=== PATIENT | male | born 1990 | race Caucasian/White ===

== ENCOUNTER 2016-03-28 09:22 | Inpatient (IN) | payer OTHER ==
[2016-03-28 10:17] VITALS: BMI 21.4
--- NOTE | 2016-03-28 14:08 | HP ---
COWS - Scale Resting Pulse: 1= [place] 81-100 Sweatin=Flushed/Facial Moisture Restless Observation: 3= Extraneous Movement Pupil Size: 2= Moderately Dilated Bone or Joint Aches: 2= Severe Diffuse Aches Runny Nose/ Eye Tearin= Runny Nose/Eyes GI Upset > 30mins: 3= Vomiting/Diarrhea Tremor Observation: 2= Slight Tremor Visible Yawning Observation: 2= >3x During Session Anxiety or Irritability: 2=Irritable/Anxious Goose Flesh Skin: 0=Smooth Skin COWS Score: 21 Admission ROS S - HPI Chief Complaint: I NEED HELP TO STOP USING HEROIN AND CISOC Allergies/Adverse Reactions: Allergies Allergy/AdvReac Type Severity Reaction Status Date / Time No Known Allergies Allergy Verified 03/28/16 10:46 History of Present Illness: THIS 26 YEARS OLD MALE WITH Exam Limitations: No Limitations - Ebola screening Have you traveled outside of the country in the last 21 days: No (N) Have you had contact with anyone from an Ebola affected area: No Have you been sick,other than usual withdrawal symptoms: No Do you have a fever: No - Review of Systems Constitutional: Chills, Diaphoresis, Loss of Appetite, Malaise, Night Sweats, Changes in sleep, Weakness EENT: reports: Tearing, Nose Congestion Respiratory: reports: No Symptoms reported Cardiac: reports: Palpitations GI: reports: Diarrhea, Vomiting, Abdominal cramping : reports: No Symptoms Reported Musculoskeletal: reports: Back Pain, Joint Pain, Muscle Pain, Joint Stiffness Integumentary: reports: Dryness Endocrine: reports: No Symptoms Reported Hematology: reports: No Symptoms Reported Psychiatric: reports: No Sypmtoms Reported Patient History - Patient Medical History Hx Anemia: No Hx Asthma: No Hx Chronic Obstructive Pulmonary Disease (COPD): No Hx Cancer: No Hx Cardiac Disorders: No Hx Congestive Heart Failure: No Hx Hypertension: No Hx Hypercholesterolemia: No Hx Pacemaker: No HX Cerebrovascular Accident: No Hx Seizures: No Hx Diabetes: No Hx Gastrointestinal Disorders: No Hx Liver Disease: No Hx Genitourinary Disorders: No Hx Sexually Transmitted Disorders: No Hx Renal Disease (ESRD): No Hx Thyroid Disease: No Hx Human Immunodeficiency Virus (HIV): No (never tested -refusing testing ) Hx Hepatitis C: No Hx Depression: No (Pt denies) Hx Suicide Attempt: No Hx Bipolar Disorder: No Hx Schizophrenia: No Other Medical History: NO SUIDl,no homicidal - Patient Surgical History Past Surgical History: No - PPD History Previous Implant?: Yes Documented Results: Negative w/o proof Date: 08/16/14 PPD to be Administered?: Yes - Smoking Cessation Smoking history: Current every day smoker Have you smoked in the past 12 months: Yes Aproximately how many cigarettes per day: 20 Cigars Per Day: 0 Hx Chewing Tobacco Use: No Initiated information on smoking cessation: Yes 'Breaking Loose' booklet given: 03/28/16 - Substance & Tx. History Hx Alcohol Use: No Hx Substance Use: Yes Substance Use Type: Heroin, Opiates Hx Substance Use Treatment: Yes (11/[facility]) - Substances Abused Heroin Route: Inhalation Frequency: Daily Amount used: 1 bundle Age of first use: 26 Date of Last Use: 03/26/16 Oxycodone Route: Oral Frequency: Daily Amount used: (5) 30mg pills Age of first use: 19 Date of Last Use: 03/27/16 Family Disease History - Family Disease History Family Disease History: Diabetes: Father (cabg), Heart Disease: Father Admission Physical Exam [facility] - Vital Signs Vital Signs: Vital Signs - 24 hr 03/28/16 10:15 Temperature 97.7 F Pulse Rate 93 H Respiratory 20 Rate Blood Pressure 130/74 - Physical General Appearance: Yes: Moderate Distress, Tremorous, Irritable, Sweating, Anxious HEENTM: Yes: Nasal Congestion, Rhinorrhea Respiratory: Yes: Lungs Clear Neck: Yes: Within Normal Limits Breast: Yes: Within Normal Limits Cardiology: Yes: Regular Rhythm, Regular Rate, S1, S2 Abdominal: Yes: Normal Bowel Sounds, Non Tender, Flat, Soft Genitourinary: Yes: Within Normal Limits Musculoskeletal: Yes: Back pain, Muscle Pain Extremities: Yes: Tremors 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, Fully Oriented, Alert, Motor Strength 5/5 Integumentary: Yes: Dry Lymphatic: Yes: Within Normal Limits - Diagnostic (1) Opioid dependence with withdrawal Current Visit: Yes Status: Acute (2) Nicotine dependence Current Visit: No Status: Chronic Cleared for Admission [facility] - Detox or Rehab [facility] Level of Care: Medically Managed Detox Regimen/Protocol: Methadone [facility] Breath Alcohol Content Breath Alcohol Content: 0 Urine Drug Screen - Results Drug Screen Negative: No Urine Drug Screen Results: ISIDRO-Cocaine, OPI-Opiates, OXY-Oxycodone
[2016-03-28] MEDS ORDERED: ACETAMINOPHEN 325 MG TABLET (FP) PO PRN (14:19)
[2016-03-28] MEDS ORDERED: LOPERAMIDE HCL 2 MG CAPSULE PO PRN (14:19)
[2016-03-28] MEDS ORDERED: MENTHOL/PHENOL 1 EACH UD MM PRN (14:19)
[2016-03-28] MEDS ORDERED: MAGNESIUM CITRATE 300 ML BOTTLE PO PRN (14:19)
[2016-03-28] MEDS ORDERED: IBUPROFEN 400 MG TABLET (FP) PO PRN (14:19)
[2016-03-28] MEDS ORDERED: MAGNESIUM HYDROX 2400MG/30ML ORAL SUSPENSION 30 ML CUP PO PRN (14:19)
[2016-03-28] MEDS ORDERED: guaiFENesin/D-METHORPHAN HB 10 ML UNIT-DOSE CUPS PO PRN (14:19)
[2016-03-28] MEDS ORDERED: MAG HYDROX/AL HYDROX/SIMETH 30 ML UNIT-DOSE CUP PO PRN (14:19)
[2016-03-28] MEDS ORDERED: P-EPHED 60MG/TRIPROLIDI 2.5MG TABLET PO PRN (14:19)
[2016-03-28] MEDS ORDERED: NICOTINE POLACRILEX 2 MG GUM BUC PRN (14:19)
[2016-03-28] MEDS ORDERED: METHADONE HCL 10 MG TABLET (FOR DETOX USE ONLY) PO ONE ×2 (14:54→23:00)
[2016-03-28] MEDS: diazePAM 5 MG TABLET PO PRN ×2 (15:02→22:39)
[2016-03-28] MEDS: NICOTINE 21 MG/24 HOURS TOPICAL PATCH TD SCH (15:02)
[2016-03-28 18:17] LABS: URINE APPEARANCE CLEAR; URINE BILIRUBIN NEGATIVE (NEGATIVE); URINE BLOOD NEGATIVE (NEGATIVE); URINE COLOR YELLOW; URINE GLUCOSE (UA) NEGATIVE (NEGATIVE); URINE KETONE NEGATIVE (NEGATIVE); URINE LEUK ESTERASE NEGATIVE (NEGATIVE); URINE NITRITE NEGATIVE (NEGATIVE); URINE PROTEIN NEGATIVE (NEGATIVE); URINE UROBILINOGEN NEGATIVE E.U./dl (0.2-1.0)
[2016-03-28] MEDS: THIAMINE HCL 100 MG TABLET (FP) PO SCH (22:38)
[2016-03-28] MEDS: CYCLOBENZAPRINE HCL 10 MG TABLET (FP) PO PRN (22:38)
[2016-03-28] MEDS: cloNIDine HCL 0.1 MG TABLET PO SCH (22:38)
[2016-03-29] MEDS ORDERED: METHADONE HCL 10 MG TABLET (FOR DETOX USE ONLY) PO ONE (10:00)
[2016-03-29 10:10] LABS: MCH 28.6 pg (25.7-33.7); MCHC 32.9 g/dl (32.0-35.9); MEAN CELL VOLUME 87.1 fl (80-96); MEAN PLT VOLUME 8.6 fl (7.5-11.1); PLATELET COUNT 235 K/MM3 (134-434); RDW 13.6 % (11.9-15.9); WHITE BLOOD COUNT 8.6 K/mm3 (4.0-10.0)
[2016-03-29] MEDS: CYCLOBENZAPRINE HCL 10 MG TABLET (FP) PO PRN ×2 (10:20→22:35)
[2016-03-29] MEDS: PRENATAL VITAMINS W/ FOLIC ACID TABLET (FP) PO SCH (10:20)
[2016-03-29] MEDS: diazePAM 5 MG TABLET PO PRN ×3 (10:20→22:35)
[2016-03-29] MEDS: NICOTINE 21 MG/24 HOURS TOPICAL PATCH TD SCH (10:21)
[2016-03-29] MEDS: cloNIDine HCL 0.1 MG TABLET PO SCH ×2 (10:21→22:35)
[2016-03-29 10:39] LABS: ALBUMIN 3.7 g/dl (3.4-5.0); ALK PHOS 42 U/L (45-117); ANION GAP 6 (8-16); BILIRUBIN,TOTAL 0.4 mg/dL (0.2-1.0); CALCIUM 9.1 mg/dL (8.5-10.1); CO2 28 mmol/L (21-32); CREATININE 0.9 mg/dL (0.7-1.3); GLUCOSE,RANDOM 80 mg/dL (74-106); SGOT/AST 5 U/L (15-37); SGPT/ALT 11 U/L (12-78); TOT PROT 6.6 g/dl (6.4-8.2)
--- NOTE | 2016-03-29 12:45 | PN ---
BHS COWS - Scale Resting Pulse: 0= [place] 80 or Below Sweatin=Flushed/Facial Moisture Restless Observation: 1= Difficult to Sit Still Pupil Size: 1= Pupils >than Normal Bone or Joint Aches: 1= Mild Discomfort Runny Nose/ Eye Tearin= Nasal Congestion GI Upset > 30mins: 1= Stomach Cramp Tremor Observation of Outstretched Hands: 1= Tremor [place], Not Seen Yawning Observation: 0= None Anxiety or Irritability: 1=Feels Anxious/Irritable Goose Flesh Skin: 0=Smooth Skin COWS Score: 9 BHS Progress Note (SOAP) Subjective: interrupted sleep, sweats Objective: 03/29/16 12:44 Vital Signs Temperature 98.2 F 03/29/16 09:54 Pulse Rate 73 03/29/16 09:54 Respiratory Rate 18 03/29/16 09:54 Blood Pressure 110/69 03/29/16 09:54 O2 Sat by Pulse Oximetry (%) Laboratory Tests 03/28/16 03/29/16 03/29/16 17:00 08:00 08:00 WBC 8.6 RBC 5.14 Hgb 14.7 Hct 44.8 MCV 87.1 MCHC 32.9 RDW 13.6 Plt Count 235 MPV 8.6 Sodium 141 Potassium 4.4 Chloride 107 Carbon Dioxide 28 Anion Gap 6 L BUN 13 Creatinine 0.9 Creat Clearance w eGFR > 60 Random Glucose 80 Calcium 9.1 Total Bilirubin 0.4 AST 5 L D ALT 11 L Alkaline Phosphatase 42 L Total Protein 6.6 Albumin 3.7 Urine Color Yellow Urine Appearance Clear Urine pH 6.0 Ur Specific [place] 1.024 Urine Protein Negative Urine Glucose (UA) Negative Urine Ketones Negative Urine Blood Negative Urine Nitrite Negative Urine Bilirubin Negative Urine Urobilinogen Negative Ur Leukocyte Esterase Negative RPR Titer 03/29/16 08:00 WBC RBC Hgb Hct MCV MCHC RDW Plt Count MPV Sodium Potassium Chloride Carbon Dioxide Anion Gap BUN Creatinine Creat Clearance w eGFR Random Glucose Calcium Total Bilirubin AST ALT Alkaline Phosphatase Total Protein Albumin Urine Color Urine Appearance Urine pH Ur Specific [place] Urine Protein Urine Glucose (UA) Urine Ketones Urine Blood Urine Nitrite Urine Bilirubin Urine Urobilinogen Ur Leukocyte Esterase RPR Titer Nonreactive pt aox3 in nad ambulating 03/29/16 12:45 Assessment: 03/29/16 12:44 withdrawl sx's Plan: cont. detox increase fluids
--- NOTE | 2016-03-29 21:37 | EKG ---
Test Reason : Blood Pressure : / mmHG Vent. Rate : 084 BPM Atrial Rate : 084 BPM P-R Int : 130 ms QRS Dur : 096 ms QT Int : 348 ms P-R-T Axes : 071 069 048 degrees QTc Int : 411 ms NORMAL SINUS RHYTHM WITH SINUS ARRHYTHMIA POSSIBLE LEFT ATRIAL ENLARGEMENT RSR' OR QR PATTERN IN V1 SUGGESTS RIGHT VENTRICULAR CONDUCTION DELAY BORDERLINE ECG NO PREVIOUS ECGS AVAILABLE Confirmed by REMY DIXON MD ([id number]) on 03/29/2016 9:37:06 PM Referred By: Confirmed By:REMY DIXON MD
[2016-03-29] MEDS: THIAMINE HCL 100 MG TABLET (FP) PO SCH (22:35)
[2016-03-30] MEDS ORDERED: METHADONE HCL 5 MG TABLET (FOR DETOX USE ONLY) PO ONE (10:00)
[2016-03-30] MEDS: cloNIDine HCL 0.1 MG TABLET PO SCH ×2 (10:15→22:56)
[2016-03-30] MEDS: diazePAM 5 MG TABLET PO PRN ×3 (10:15→22:57)
[2016-03-30] MEDS: PRENATAL VITAMINS W/ FOLIC ACID TABLET (FP) PO SCH (10:15)
[2016-03-30] MEDS: NICOTINE 21 MG/24 HOURS TOPICAL PATCH TD SCH (10:15)
--- NOTE | 2016-03-30 11:26 | PN ---
BHS COWS - Scale Resting Pulse: 0= [place] 80 or Below Sweatin= Chills/Flushing Restless Observation: 1= Difficult to Sit Still Pupil Size: 1= Pupils >than Normal Bone or Joint Aches: 1= Mild Discomfort Runny Nose/ Eye Tearin= Nasal Congestion GI Upset > 30mins: 1= Stomach Cramp Tremor Observation of Outstretched Hands: 1= Tremor [place], Not Seen Yawning Observation: 1= 1-2x During Session Anxiety or Irritability: 1=Feels Anxious/Irritable Goose Flesh Skin: 0=Smooth Skin COWS Score: 9 BHS Progress Note (SOAP) Subjective: INTERRUPTED SLEEP Objective: 03/30/16 11:24 Vital Signs Temperature 97.5 F L 03/30/16 09:58 Pulse Rate 80 03/30/16 09:58 Respiratory Rate 20 03/30/16 09:58 Blood Pressure 118/59 03/30/16 09:58 O2 Sat by Pulse Oximetry (%) Assessment: 03/30/16 11:30 WITHDRAWAL SX'S Plan: CONT. DETOX INCREASE FLUIDS
[2016-03-30] MEDS: CYCLOBENZAPRINE HCL 10 MG TABLET (FP) PO PRN ×2 (13:38→22:58)
[2016-03-30] MEDS: THIAMINE HCL 100 MG TABLET (FP) PO SCH (22:56)
[2016-03-31] MEDS ORDERED: METHADONE HCL 5 MG TABLET (FOR DETOX USE ONLY) PO ONE (10:00)
[2016-03-31] MEDS: cloNIDine HCL 0.1 MG TABLET PO SCH ×2 (10:08→22:12)
[2016-03-31] MEDS: diazePAM 5 MG TABLET PO PRN (10:08)
[2016-03-31] MEDS: PRENATAL VITAMINS W/ FOLIC ACID TABLET (FP) PO SCH (10:08)
[2016-03-31] MEDS: NICOTINE 21 MG/24 HOURS TOPICAL PATCH TD SCH (10:09)
--- NOTE | 2016-03-31 11:32 | PN ---
BHS Progress Note (SOAP) Subjective: facial rash sweats Objective: 03/31/16 11:31 Vital Signs Temperature 97.7 F 03/31/16 09:46 Pulse Rate 94 H 03/31/16 09:46 Respiratory Rate 16 03/31/16 09:46 Blood Pressure 125/77 03/31/16 09:46 O2 Sat by Pulse Oximetry (%) awake/alert ambulating no acute distress Assessment: 03/31/16 11:32 withdrawal sx Plan: continue detox increase fluids hydrocortizone cream ordered
[2016-03-31] MEDS: CYCLOBENZAPRINE HCL 10 MG TABLET (FP) PO PRN ×2 (12:17→22:12)
[2016-03-31] MEDS: HYDROCORTISONE 2.5% LOTION - 1 BOTTLE TP PRN ×2 (12:17→22:12)
[2016-03-31] MEDS: hydrOXYzine PAMOATE 50 MG CAPSULE (FP) PO PRN (14:32)
[2016-03-31] MEDS: diphenhydrAMINE HCL 50 MG CAPSULE PO PRN (22:12)
[2016-03-31] MEDS: THIAMINE HCL 100 MG TABLET (FP) PO SCH (22:12)
[2016-04-01] MEDS ORDERED: METHADONE HCL 10 MG TABLET (FOR DETOX USE ONLY) PO ONE (10:00)
[2016-04-01] MEDS: NICOTINE 21 MG/24 HOURS TOPICAL PATCH TD SCH (10:09)
[2016-04-01] MEDS: hydrOXYzine PAMOATE 50 MG CAPSULE (FP) PO PRN (10:10)
[2016-04-01] MEDS: cloNIDine HCL 0.1 MG TABLET PO SCH ×2 (10:10→22:08)
[2016-04-01] MEDS: PRENATAL VITAMINS W/ FOLIC ACID TABLET (FP) PO SCH (10:10)
[2016-04-01] MEDS: CYCLOBENZAPRINE HCL 10 MG TABLET (FP) PO PRN ×2 (10:11→22:08)
[2016-04-01] MEDS: HYDROCORTISONE 2.5% LOTION - 1 BOTTLE TP PRN (10:12)
--- NOTE | 2016-04-01 10:19 | PN ---
BHS Progress Note (SOAP) Subjective: ALERT,IRRITABLE,ANXIOUS,INTERRUPTED SLEEP,PAIN IN THE BODY Objective: 04/01/16 10:19 Vital Signs Temperature 97.7 F 04/01/16 09:54 Pulse Rate 88 04/01/16 09:54 Respiratory Rate 16 04/01/16 09:54 Blood Pressure 114/72 04/01/16 09:54 O2 Sat by Pulse Oximetry (%) Assessment: 04/01/16 10:19 WITHDRAWAL SYMPTOM Plan: CONTINUE DETOX
[2016-04-01] MEDS: diphenhydrAMINE HCL 50 MG CAPSULE PO PRN (22:08)
[2016-04-01] MEDS: THIAMINE HCL 100 MG TABLET (FP) PO SCH (22:08)
[2016-04-02] MEDS ORDERED: METHADONE HCL 5 MG TABLET (FOR DETOX USE ONLY) PO ONE (06:00)
--- NOTE | 2016-04-02 10:45 | DS ---
[facility] Detox Discharge Summary Admission Date: 03/28/16 Discharge Date: 04/02/16 - History Present History: Cocaine Dependence, Opioid Dependence Pertinent Past History: non-contributory - Physical Exam Results Vital Signs: Vital Signs Temperature 98.1 F 04/02/16 06:00 Pulse Rate 87 04/02/16 06:00 Respiratory Rate 16 04/02/16 06:00 Blood Pressure 113/63 04/02/16 06:00 O2 Sat by Pulse Oximetry (%) Pertinent Admission Physical Exam Findings: withdrawal sx Laboratory Last Values WBC 8.6 K/mm3 (4.0-10.0) 03/29/16 08:00 RBC 5.14 M/mm3 (4.00-5.60) 03/29/16 08:00 Hgb 14.7 GM/dL (11.7-16.9) 03/29/16 08:00 Hct 44.8 % (35.4-49) 03/29/16 08:00 MCV 87.1 fl (80-96) 03/29/16 08:00 MCHC 32.9 g/dl (32.0-35.9) 03/29/16 08:00 RDW 13.6 % (11.9-15.9) 03/29/16 08:00 Plt Count 235 K/MM3 (134-434) 03/29/16 08:00 MPV 8.6 fl (7.5-11.1) 03/29/16 08:00 Sodium 141 mmol/L (136-145) 03/29/16 08:00 Potassium 4.4 mmol/L (3.5-5.1) 03/29/16 08:00 Chloride 107 mmol/L (98-107) 03/29/16 08:00 Carbon Dioxide 28 mmol/L (21-32) 03/29/16 08:00 Anion Gap 6 (8-16) L 03/29/16 08:00 BUN 13 mg/dL (7-18) 03/29/16 08:00 Creatinine 0.9 mg/dL (0.7-1.3) 03/29/16 08:00 Creat Clearance w eGFR > 60 (>60) 03/29/16 08:00 Random Glucose 80 mg/dL (74-106) 03/29/16 08:00 Calcium 9.1 mg/dL (8.5-10.1) 03/29/16 08:00 Total Bilirubin 0.4 mg/dL (0.2-1.0) 03/29/16 08:00 AST 5 U/L (15-37) L D 03/29/16 08:00 ALT 11 U/L (12-78) L 03/29/16 08:00 Alkaline Phosphatase 42 U/L (45-117) L 03/29/16 08:00 Total Protein 6.6 g/dl (6.4-8.2) 03/29/16 08:00 Albumin 3.7 g/dl (3.4-5.0) 03/29/16 08:00 Urine Color Yellow 03/28/16 17:00 Urine Appearance Clear 03/28/16 17:00 Urine pH 6.0 (5.0-8.0) 03/28/16 17:00 Ur Specific [place] 1.024 (1.001-1.035) 03/28/16 17:00 Urine Protein Negative (NEGATIVE) 03/28/16 17:00 Urine Glucose (UA) Negative (NEGATIVE) 03/28/16 17:00 Urine Ketones Negative (NEGATIVE) 03/28/16 17:00 Urine Blood Negative (NEGATIVE) 03/28/16 17:00 Urine Nitrite Negative (NEGATIVE) 03/28/16 17:00 Urine Bilirubin Negative (NEGATIVE) 03/28/16 17:00 Urine Urobilinogen Negative E.U./dl (0.2-1.0) 03/28/16 17:00 Ur Leukocyte Esterase Negative (NEGATIVE) 03/28/16 17:00 RPR Titer Nonreactive (NONREACTIVE) 03/29/16 08:00 Labs noted - Treatment Hospital Course: Detox Protocol Followed, Detoxed Safely, Responded well, Discharged Condition Good - Medication Discharge Medications: Ambulatory Orders NK [No Known Home Medication] 08/14/14 - Diagnosis (1) Opioid dependence with withdrawal Current Visit: Yes Status: Acute (2) Nicotine dependence Current Visit: Yes Status: Acute Qualifiers: Nicotine product type: cigarettes Substance use status: uncomplicated Qualified Code(s): F17.210 - Nicotine dependence, cigarettes, uncomplicated (3) Cocaine abuse Current Visit: Yes Status: Acute - AMA Did Patient Leave Against Medical Advice: No
[2016-04-02 11:18] VITALS: BP 122/73; PULSE 109; TEMP 98
== END 2016-04-02 09:45 | disposition home or self-care (01) | DRG 773 ==
LOC: YASAS 09:22 → Y6N 12:01
PROVIDERS: ADMIT Internal Medicine; ATTEND Internal Medicine
PROC: HZ2ZZZZ Detoxification Services for Substance Abuse Treatment (ICD-10-PCS; principal; 2016-03-28)
DX: F11.23 Opioid dependence with withdrawal (principal); F14.10 Cocaine abuse, uncomplicated; F17.210 Nicotine dependence, cigarettes, uncomplicated
CPT/HCPCS: 36415; 80053; 81003; 85027; 86593; 93005; 93010

== ENCOUNTER 2018-06-22 12:13 | Inpatient (IN) | payer OTHER ==
[2018-06-22 14:03] VITALS: BMI 23.0
--- NOTE | 2018-06-22 14:28 | HP ---
COWS - Scale Resting Pulse: 0= [place] 80 or Below Sweatin= Chills/Flushing Restless Observation: 1= Difficult to Sit Still Pupil Size: 1= Pupils >than Normal Bone or Joint Aches: 2= Severe Diffuse Aches Runny Nose/ Eye Tearin= Runny Nose/Eyes GI Upset > 30mins: 2= Nausea/Diarrhea Tremor Observation: 2= Slight Tremor Visible Yawning Observation: 1= 1-2x During Session Anxiety or Irritability: 2=Irritable/Anxious Goose Flesh Skin: 0=Smooth Skin COWS Score: 14 CIWA Score - Admission Criteria [facility] Guidelines: Admission for Medically Managed Detox: Requires at least one of the followin. CIWA greater than 12 2. Seizures within the past 24 hours 3. Delirium tremens within the past 24 hours 4. Hallucinations within the past 24 hours 5. Acute intervention needed for co occurring medical disorder 6. Acute intervention needed for co occurring psychiatric disorder 7. Severe withdrawal that cannot be handled at a lower level of care (continued vomiting, continued diarrhea, abnormal vital signs) requiring intravenous medication and/or fluids 8. Admission ROS S - HPI Chief Complaint: i need help to stop using heroin Allergies/Adverse Reactions: Allergies Allergy/AdvReac Type Severity Reaction Status Date / Time No Known Allergies Allergy Verified 06/22/18 13:55 History of Present Illness: this 28 years old male with heroin dependence,seeking detox,withdrawal symptom, last detox [facility] 03/28/16 to 04/02/16 nicotine dependence 1 pack/day,requested nicotine patch depression on med weight loss longest sobriety 6 months plan for rehab Exam Limitations: No Limitations - Ebola screening Have you traveled outside of the country in the last 21 days: No Have you had contact with anyone from an Ebola affected area: No Do you have a fever: No - Review of Systems Constitutional: Chills, Loss of Appetite, Night Sweats, Changes in sleep, Unintentional Wgt. Loss EENT: reports: No Symptoms Reported, Tearing, Nose Congestion Respiratory: reports: No Symptoms reported Cardiac: reports: No Symptoms Reported GI: reports: Diarrhea, Nausea, Poor Appetite, Vomiting : reports: No Symptoms Reported Musculoskeletal: reports: Back Pain, Joint Pain, Muscle Pain Integumentary: reports: Dryness Neuro: reports: Headache, Tremors Endocrine: reports: No Symptoms Reported Hematology: reports: No Symptoms Reported Psychiatric: reports: No Sypmtoms Reported, Judgement Intact, Mood/Affect Appropiate, Orientated x3, Agitated, Anxious, Depressed Other Systems: Reviewed and Negative Patient History - Patient Medical History Hx Anemia: No Hx Asthma: No Hx Chronic Obstructive Pulmonary Disease (COPD): No Hx Cancer: No Hx Cardiac Disorders: No Hx Congestive Heart Failure: No Hx Hypertension: No Hx Hypercholesterolemia: No Hx Pacemaker: No HX Cerebrovascular Accident: No Hx Seizures: No Hx Diabetes: No Hx Gastrointestinal Disorders: No Hx Liver Disease: No Hx Genitourinary Disorders: No Hx Sexually Transmitted Disorders: No Hx Renal Disease (ESRD): No Hx Thyroid Disease: No Hx Human Immunodeficiency Virus (HIV): No (last tested 12/24 negative) Hx Hepatitis C: No Hx Depression: Yes (on med) Hx Suicide Attempt: No Hx Bipolar Disorder: No Hx Schizophrenia: No Other Medical History: no suicidal,no homicidal - Patient Surgical History Past Surgical History: No - PPD History Previous Implant?: Yes Documented Results: Negative w/o proof Implanted On Prior R Admission?: Yes Date: 03/30/16 PPD to be Administered?: Yes - Smoking Cessation Smoking history: Current every day smoker Have you smoked in the past 12 months: Yes Aproximately how many cigarettes per day: 20 Cigars Per Day: 0 Hx Chewing Tobacco Use: No Initiated information on smoking cessation: Yes 'Breaking Loose' booklet given: 06/22/18 - Substance & Tx. History Hx Alcohol Use: No Hx Substance Use: Yes Substance Use Type: Heroin Hx Substance Use Treatment: Yes (last [facility] 03/28/16 to 04/02/16) - Substances abused Heroin Substance route: Injection Frequency: Daily Amount used: 1 BUNDLE Age of first use: 25 Date of last use: 06/21/18 Family Disease History - Family Disease History Family Disease History: Diabetes: Father (cabg), Heart Disease: Father Admission Physical Exam S - Vital Signs Vital Signs: Vital Signs - 24 hr 06/22/18 13:49 Temperature 98.4 F Pulse Rate 78 Respiratory 18 Rate Blood Pressure 105/62 - Physical General Appearance: Yes: Moderate Distress, Tremorous, Irritable, Sweating, Anxious HEENTM: Yes: Normal ENT Inspection, QUYEN, Pharynx Normal Respiratory: Yes: Within Normal Limits, Lungs Clear, Normal Breath Sounds Neck: Yes: Within Normal Limits, Supple, Trachea in good position Breast: Yes: Within Normal Limits Cardiology: Yes: Within Normal Limits, Regular Rhythm, Regular Rate, S1, S2 Abdominal: Yes: Within Normal Limits, Normal Bowel Sounds, Non Tender, Flat, Soft Genitourinary: Yes: Within Normal Limits Back: Yes: Muscle Spasm Musculoskeletal: Yes: Back pain, Muscle Pain Extremities: Yes: Tremors 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, 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, Motor Strength 5/5 Integumentary: Yes: Dry, Track [place], Other (abrasion of right index) Lymphatic: Yes: Within Normal Limits - Diagnostic (1) Opioid dependence with withdrawal Current Visit: Yes Status: Acute (2) Nicotine dependence Current Visit: Yes Status: Acute Qualifiers: Nicotine product type: cigarettes Substance use status: uncomplicated Qualified Code(s): F17.210 - Nicotine dependence, cigarettes, uncomplicated (3) IVDU (intravenous drug user) Current Visit: Yes Status: Acute (4) Dehydration Current Visit: Yes Status: Acute (5) Weight loss Current Visit: Yes Status: Acute (6) Depression Current Visit: Yes Status: Acute (7) Abrasion Current Visit: Yes Status: Acute Cleared for Admission [facility] - Detox or Rehab [facility] Level of Care: Medically Managed Detox Regimen/Protocol: Methadone Breathalyzer - Breathalyzer Breathalyzer: 0 Urine Drug Screen - Test Device Lot number: [id number] Expiration date: 03/08/20 - Control Is test valid?: Yes - Results Drug screen NEGATIVE: No Urine drug screen results: FEN-Fentanyl, MOP-Opiates Inpatient Rehab Admission - Rehab Decision to Admit Inpatient rehab admission?: No
[2018-06-22] MEDS ORDERED: MAGNESIUM HYDROX 2400MG/30ML ORAL SUSPENSION 30 ML CUP PO PRN (14:38)
[2018-06-22] MEDS ORDERED: MENTHOL/PHENOL 1 EACH UD MM PRN (14:38)
[2018-06-22] MEDS ORDERED: BISMUTH SUBSALICYLATE 524 MG/30 ML UD PO PRN (14:38)
[2018-06-22] MEDS ORDERED: MAGNESIUM CITRATE 300 ML BOTTLE PO PRN (14:38)
[2018-06-22] MEDS ORDERED: IBUPROFEN 400 MG TABLET (FP) PO PRN (14:38)
[2018-06-22] MEDS ORDERED: cloNIDine HCL 0.1 MG TABLET PO PRN (14:38)
[2018-06-22] MEDS ORDERED: hydrOXYzine PAMOATE 25 MG CAPSULE (FP) PO PRN (14:38)
[2018-06-22] MEDS ORDERED: MAG HYDROX/AL HYDROX/SIMETH 30 ML UNIT-DOSE CUP PO PRN (14:38)
[2018-06-22] MEDS ORDERED: ACETAMINOPHEN 325 MG TABLET (FP) PO PRN ×2 (14:38)
--- NOTE | 2018-06-22 16:26 | CONSULT ---
[facility] Psychiatric Consult - Data Date of interview: 06/22/18 Admission source: [facility] Identifying data: Patient is a 28 year old single male, father of two, unemployed, homeless and not currently receiving financial assistance. This is one of multiple admissions for patient. Patient admitted to for opiate dependence. Substance Abuse History: Smoking Cessation. Smoking history: Current every day smoker. Have you smoked in the past 12 months: Yes. Aproximately how many cigarettes per day: 20. Cigars Per Day: 0. Hx Chewing Tobacco Use: No. Initiated information on smoking cessation: Yes. 'Breaking Loose' booklet given : 06/22/18. - Substance & Tx. History. Hx Alcohol Use: No. Hx Substance Use: Yes. Substance Use Type: Heroin. Hx Substance Use Treatment: Yes (last [facility] to 04/02/16). - Substances abused. Heroin. Substance route: Injection. Frequency: Daily. Amount used: 1 BUNDLE. Age of first use: 25. Date of last use: 06/21/18 Psychiatric History: Patient denies h/o psychiatric hospitalization and suicide attempt. He reports h/o psychiatric treatment while in detox and rehab facilites. States he was first started on Wellbutrin at [facility] in February of 2018 and medication was continued while at [facility] in [place]. Mr. Sandrine Saleh is currently prescribed Wellbutrin 300mg XL. External records reviewed and verified. At present, patient reports stable mood. Physical/Sexual Abuse/Trauma History: denies. Mental Status Exam - Mental Status Exam Alert and Oriented to: Time, Place, Person Cognitive Function: Good Patient Appearance: Well Groomed Mood: Withdrawn Affect: Appropriate Patient Behavior: Cooperative Speech Pattern: Appropriate Voice Loudness: Moderately Soft/Quiet Thought Process: Goal Oriented Thought Disorder: Not Present Hallucinations: Denies Suicidal Ideation: Denies Homicidal Ideation: Denies Insight/Judgement: Poor Sleep: Poorly Appetite: Poor Muscle strength/Tone: Normal Gait/Station: Normal Psychiatric Findings - Problem List ([place] 1, 2,3) (1) Substance induced mood disorder Current Visit: Yes Status: Acute (2) Nicotine dependence Current Visit: Yes Status: Acute Qualifiers: Nicotine product type: cigarettes Substance use status: uncomplicated Qualified Code(s): F17.210 - Nicotine dependence, cigarettes, uncomplicated (3) Opioid dependence with withdrawal Current Visit: Yes Status: Acute (4) Depressive disorder Current Visit: Yes Status: Chronic - Initial Treatment Plan Initial Treatment Plan: Psychoeducation provided. Detoxification in progress. Will order Wellbutrin 300mg XL. Benefits and side effects discussed. Verbal consent given.
[2018-06-22] MEDS ORDERED: METHADONE HCL 10 MG TABLET (FOR DETOX USE ONLY) PO ONE ×2 (16:30→23:00)
[2018-06-22] MEDS: diazePAM 5 MG TABLET PO PRN (16:33)
[2018-06-22] MEDS: NICOTINE 21 MG/24 HOURS TOPICAL PATCH TD SCH (16:34)
[2018-06-22 17:58] LABS: HEMATOCRIT 44.1 % (35.4-49); HEMOGLOBIN 14.6 GM/dL (11.7-16.9); MCH 29.4 pg (25.7-33.7); MEAN CELL VOLUME 89.2 fl (80-96); MEAN PLT VOLUME 8.8 fl (7.5-11.1); PLATELET COUNT 272 K/MM3 (134-434); RBC 4.95 M/mm3 (4.00-5.60); RDW 13.5 % (11.9-15.9); WHITE BLOOD COUNT 8.9 K/mm3 (4.0-10.0)
[2018-06-22 18:15] LABS: ALBUMIN 3.4 g/dl (3.4-5.0); BILIRUBIN,TOTAL 0.4 mg/dL (0.2-1); CALCIUM 8.8 mg/dL (8.5-10.1); CREATININE 0.9 mg/dL (0.55-1.3); POTASSIUM 4.2 mmol/L (3.5-5.1); TOT PROT 6.5 g/dl (6.4-8.2)
[2018-06-22] MEDS: THIAMINE HCL 100 MG TABLET (FP) PO SCH (22:18)
[2018-06-22] MEDS: MELATONIN 5 MG TABLETS PO PRN (22:18)
[2018-06-23] MEDS ORDERED: METHADONE HCL 10 MG TABLET (FOR DETOX USE ONLY) PO ONE (10:00)
--- NOTE | 2018-06-23 10:22 | PN ---
S COWS - Scale Resting Pulse: 0= [place] 80 or Below Sweatin= Beads of Sweat on Face Restless Observation: 1= Difficult to Sit Still Pupil Size: 0= Normal to Room Light Bone or Joint Aches: 2= Severe Diffuse Aches Runny Nose/ Eye Tearin= None GI Upset > 30mins: 0= None Tremor Observation of Outstretched Hands: 2= Slight Tremor Visible Yawning Observation: 1= 1-2x During Session Anxiety or Irritability: 2=Irritable/Anxious Goose Flesh Skin: 0=Smooth Skin COWS Score: 11 S Progress Note (SOAP) Subjective: c/o sweats, anxiety, body aches, and irritability. Objective: 06/23/18 10:20 Vital Signs 06/23/18 06/23/18 06/23/18 03:30 06:00 09:18 Temperature 97.7 F 98.1 F Pulse Rate 83 77 Respiratory 18 18 18 Rate Blood Pressure 136/60 123/74 Lab Results WBC 8.9 K/mm3 (4.0-10.0) 06/22/18 14:40 RBC 4.95 M/mm3 (4.00-5.60) 06/22/18 14:40 Hgb 14.6 GM/dL (11.7-16.9) 06/22/18 14:40 Hct 44.1 % (35.4-49) 06/22/18 14:40 MCV 89.2 fl (80-96) 06/22/18 14:40 MCHC 33.0 g/dl (32.0-35.9) 06/22/18 14:40 RDW 13.5 % (11.9-15.9) 06/22/18 14:40 Plt Count 272 K/MM3 (134-434) 06/22/18 14:40 Sodium 139 mmol/L (136-145) 06/22/18 14:40 Potassium 4.2 mmol/L (3.5-5.1) 06/22/18 14:40 Chloride 104 mmol/L (98-107) 06/22/18 14:40 Carbon Dioxide 31 mmol/L (21-32) 06/22/18 14:40 Anion Gap 4 MMOL/L (8-16) L 06/22/18 14:40 BUN 10 mg/dL (7-18) 06/22/18 14:40 Creatinine 0.9 mg/dL (0.55-1.3) 06/22/18 14:40 Random Glucose 72 mg/dL (74-106) L 06/22/18 14:40 Calcium 8.8 mg/dL (8.5-10.1) 06/22/18 14:40 Labs noted. Assessment: 06/23/18 10:21 AOX3, no distress noted full ROM, ambulating in the unit. withdrawal symptoms persists. Plan: continue detox increase fluids
[2018-06-23] MEDS: PRENATAL VITAMINS W/ FOLIC ACID TABLET (FP) PO SCH (10:25)
[2018-06-23] MEDS: NICOTINE 21 MG/24 HOURS TOPICAL PATCH TD SCH (10:26)
[2018-06-23] MEDS: THIAMINE HCL 100 MG TABLET (FP) PO SCH (22:31)
[2018-06-23] MEDS: MELATONIN 5 MG TABLETS PO PRN (22:31)
[2018-06-24] MEDS ORDERED: METHADONE HCL 10 MG TABLET (FOR DETOX USE ONLY) PO ONE (10:00)
[2018-06-24] MEDS: PRENATAL VITAMINS W/ FOLIC ACID TABLET (FP) PO SCH (10:39)
[2018-06-24] MEDS: METHOCARBAMOL 500 MG TABLET PO PRN ×3 (10:40→23:00)
[2018-06-24] MEDS: NICOTINE 21 MG/24 HOURS TOPICAL PATCH TD SCH (10:40)
--- NOTE | 2018-06-24 14:36 | PN ---
BHS COWS - Scale Resting Pulse: 0= [place] 80 or Below Sweatin= Chills/Flushing Restless Observation: 1= Difficult to Sit Still Pupil Size: 0= Normal to Room Light Bone or Joint Aches: 2= Severe Diffuse Aches Runny Nose/ Eye Tearin= None GI Upset > 30mins: 1= Stomach Cramp Tremor Observation of Outstretched Hands: 2= Slight Tremor Visible Yawning Observation: 0= None Anxiety or Irritability: 2=Irritable/Anxious Goose Flesh Skin: 0=Smooth Skin COWS Score: 9 BHS Progress Note (SOAP) Subjective: Sweating, restless Objective: 06/24/18 14:35 Last Vital Signs Temp Pulse Resp BP Pulse Ox 98.4 F 73 18 116/55 L 06/24/18 14:19 06/24/18 14:19 06/24/18 14:19 06/24/18 14:19 Laboratory Tests 06/22/18 06/22/18 06/22/18 14:40 14:40 14:40 WBC 8.9 RBC 4.95 Hgb 14.6 Hct 44.1 MCV 89.2 MCH 29.4 MCHC 33.0 RDW 13.5 Plt Count 272 MPV 8.8 Sodium 139 Potassium 4.2 Chloride 104 Carbon Dioxide 31 Anion Gap 4 L BUN 10 Creatinine 0.9 Est GFR (CKD-EPI)AfAm 135.19 Est GFR (CKD-EPI)NonAf 116.64 Random Glucose 72 L Calcium 8.8 Total Bilirubin 0.4 AST 21 ALT 36 Alkaline Phosphatase 48 Total Protein 6.5 Albumin 3.4 RPR Titer Nonreactive Labs reviewed Assessment: 06/24/18 14:35 Withdrawal symptoms Plan: Continue detox Encouraged PO water intake
[2018-06-24] MEDS: diazePAM 5 MG TABLET PO PRN ×2 (17:05→23:00)
[2018-06-24 17:32] LABS: EPI CELLS 10.3 /HPF (0-5/HPF); HYALINE CASTS 200 /lpf (0-8); PH,URINE 6.5 (5.0-8.0); URINE APPEARANCE CLEAR; URINE BACTERIA 13.7 /hpf (NEGATIVE); URINE BILIRUBIN NEGATIVE (NEGATIVE); URINE COLOR YELLOW; URINE GLUCOSE (UA) NEGATIVE (NEGATIVE); URINE KETONE NEGATIVE (NEGATIVE); URINE LEUK ESTERASE 2+ (NEGATIVE); URINE NITRITE NEGATIVE (NEGATIVE); URINE PROTEIN NEGATIVE (NEGATIVE); URINE RBC 2 /hpf (0-4); URINE UROBILINOGEN 0.2 mg/dL (0.2-1.0); URINE WBC 6 /hpf (0-5)
[2018-06-24 18:10] LABS: URINE CRYSTALS FEW CAL OX /hpf
[2018-06-24] MEDS: MELATONIN 5 MG TABLETS PO PRN (22:59)
[2018-06-24] MEDS: THIAMINE HCL 100 MG TABLET (FP) PO SCH (22:59)
[2018-06-25] MEDS ORDERED: METHADONE HCL 5 MG TABLET (FOR DETOX USE ONLY) ONE (09:49)
[2018-06-25] MEDS ORDERED: METHADONE HCL 10 MG TABLET (FOR DETOX USE ONLY) ONE (09:49)
[2018-06-25] MEDS ORDERED: METHADONE HCL 10 MG TABLET (FOR DETOX USE ONLY) PO ONE (10:00)
[2018-06-25] MEDS ORDERED: METHADONE (DETOX) 10 MG, METHADONE (DETOX) 5 MG PO ONE (10:00)
[2018-06-25] MEDS: PRENATAL VITAMINS W/ FOLIC ACID TABLET (FP) PO SCH (10:47)
[2018-06-25] MEDS: NICOTINE 21 MG/24 HOURS TOPICAL PATCH TD SCH (10:48)
[2018-06-25] MEDS: diazePAM 5 MG TABLET PO PRN (10:50)
[2018-06-25] MEDS: METHOCARBAMOL 500 MG TABLET PO PRN (10:50)
--- NOTE | 2018-06-25 13:53 | PN ---
BHS COWS - Scale Resting Pulse: 0= [place] 80 or Below Sweatin= Chills/Flushing Restless Observation: 0= Sits Still Pupil Size: 0= Normal to Room Light Bone or Joint Aches: 2= Severe Diffuse Aches Runny Nose/ Eye Tearin= None GI Upset > 30mins: 0= None Tremor Observation of Outstretched Hands: 0= None Yawning Observation: 1= 1-2x During Session Anxiety or Irritability: 2=Irritable/Anxious Goose Flesh Skin: 3=Piloerection COWS Score: 9 BHS Progress Note (SOAP) Subjective: Sweating, Fatigue, Body Aches. Objective: PATIENT A & O X 3, OBSERVED AMBULATING ON UNIT UNASSISTED. IN NO ACUTE DISTRESS. 06/25/18 13:51 Vital Signs Temperature 98.2 F 06/25/18 09:26 Pulse Rate 78 06/25/18 09:26 Respiratory Rate 18 06/25/18 09:26 Blood Pressure 112/60 06/25/18 09:26 O2 Sat by Pulse Oximetry (%) Laboratory Tests 06/22/18 06/22/18 06/22/18 14:40 14:40 14:40 WBC 8.9 RBC 4.95 Hgb 14.6 Hct 44.1 MCV 89.2 MCH 29.4 MCHC 33.0 RDW 13.5 Plt Count 272 MPV 8.8 Sodium 139 Potassium 4.2 Chloride 104 Carbon Dioxide 31 Anion Gap 4 L BUN 10 Creatinine 0.9 Est GFR (CKD-EPI)AfAm 135.19 Est GFR (CKD-EPI)NonAf 116.64 Random Glucose 72 L Calcium 8.8 Total Bilirubin 0.4 AST 21 ALT 36 Alkaline Phosphatase 48 Total Protein 6.5 Albumin 3.4 Urine Color Urine Appearance Urine pH Ur Specific [place] Urine Protein Urine Glucose (UA) Urine Ketones Urine Blood Urine Nitrite Urine Bilirubin Urine Urobilinogen Ur Leukocyte Esterase Urine WBC (Auto) Urine RBC (Auto) Urine Casts (Auto) U Pathogenic Cast Auto U Epithel Cells (Auto) U Sm Round Cell (Auto) Urine Crystals (Auto) Urine Bacteria (Auto) RPR Titer Nonreactive 06/24/18 08:19 WBC RBC Hgb Hct MCV MCH MCHC RDW Plt Count MPV Sodium Potassium Chloride Carbon Dioxide Anion Gap BUN Creatinine Est GFR (CKD-EPI)AfAm Est GFR (CKD-EPI)NonAf Random Glucose Calcium Total Bilirubin AST ALT Alkaline Phosphatase Total Protein Albumin Urine Color Yellow Urine Appearance Clear Urine pH 6.5 Ur Specific [place] 1.024 Urine Protein Negative Urine Glucose (UA) Negative Urine Ketones Negative Urine Blood Negative Urine Nitrite Negative Urine Bilirubin Negative Urine Urobilinogen 0.2 Ur Leukocyte Esterase 2+ H Urine WBC (Auto) 6 Urine RBC (Auto) 2 Urine Casts (Auto) 200 U Pathogenic Cast Auto None U Epithel Cells (Auto) 10.3 U Sm Round Cell (Auto) None Urine Crystals (Auto) Few amari ox Urine Bacteria (Auto) 13.7 RPR Titer LABS NOTED. PATIENT DENIES ANY UNUSUAL URINARY COMPLAINTS (BURNING, PAIN, FREQUENCY, URGENCY , HESITANCY). 06/25/18 13:52 Assessment: 06/25/18 13:52 WITHDRAWAL SYMPTOMS. Plan: CONTINUE DETOX. INCREASE DAILY PO FLUID / WATER INTAKE.
[2018-06-25] MEDS: THIAMINE HCL 100 MG TABLET (FP) PO SCH (23:19)
[2018-06-26] MEDS ORDERED: METHADONE HCL 5 MG TABLET (FOR DETOX USE ONLY) PO ONE (06:00)
[2018-06-26] MEDS ORDERED: METHADONE HCL 10 MG TABLET (FOR DETOX USE ONLY) PO ONE (10:00)
--- NOTE | 2018-06-26 10:10 | PN ---
S Progress Note (SOAP) Subjective: alert,irritable,anxious,interrupted sleep Objective: 06/26/18 10:09 Vital Signs Temperature 98.2 F 06/26/18 09:23 Pulse Rate 84 06/26/18 09:23 Respiratory Rate 18 06/26/18 09:23 Blood Pressure 121/53 L 06/26/18 09:23 O2 Sat by Pulse Oximetry (%) Assessment: 06/26/18 10:09 withdrawal symptom Plan: continue detox,discharge in am
[2018-06-26] MEDS: NICOTINE 21 MG/24 HOURS TOPICAL PATCH TD SCH (10:57)
[2018-06-26] MEDS: PRENATAL VITAMINS W/ FOLIC ACID TABLET (FP) PO SCH (10:57)
[2018-06-26] MEDS: THIAMINE HCL 100 MG TABLET (FP) PO SCH (23:51)
[2018-06-27] MEDS ORDERED: METHADONE HCL 5 MG TABLET (FOR DETOX USE ONLY) PO ONE (06:00)
[2018-06-27 10:54] VITALS: BP 116/65; PULSE 94; TEMP 98.2
[2018-06-27] MEDS: NICOTINE 21 MG/24 HOURS TOPICAL PATCH TD SCH (11:41)
[2018-06-27] MEDS: PRENATAL VITAMINS W/ FOLIC ACID TABLET (FP) PO SCH (11:42)
--- NOTE | 2018-06-27 13:05 | DS ---
[facility] Detox Discharge Summary Admission Date: 06/22/18 Discharge Date: 06/27/18 - History Present History: Opioid Dependence Additional Comments: PATIENT GOING TO [facility] ([facility] [place]) FOR AFTERCARE. PATIENT WAS DISCHARGED FROM DETOX UNIT TO BE TAKEN OVER TO REHAB UNIT IN STABLE MEDICAL CONDITION. Pertinent Past History: Nicotine Dependence, Weight Loss, Dehydration, Depressive Disorder, Abrasion, Intravenous Drug User. - Physical Exam Results Vital Signs: Vital Signs Temperature 98.2 F 06/27/18 10:53 Pulse Rate 94 H 06/27/18 10:53 Respiratory Rate 18 06/27/18 10:53 Blood Pressure 116/65 06/27/18 10:53 O2 Sat by Pulse Oximetry (%) Pertinent Admission Physical Exam Findings: WITHDRAWAL SYMPTOMS. Laboratory Tests 06/22/18 06/22/18 06/22/18 14:40 14:40 14:40 WBC 8.9 RBC 4.95 Hgb 14.6 Hct 44.1 MCV 89.2 MCH 29.4 MCHC 33.0 RDW 13.5 Plt Count 272 MPV 8.8 Sodium 139 Potassium 4.2 Chloride 104 Carbon Dioxide 31 Anion Gap 4 L BUN 10 Creatinine 0.9 Est GFR (CKD-EPI)AfAm 135.19 Est GFR (CKD-EPI)NonAf 116.64 Random Glucose 72 L Calcium 8.8 Total Bilirubin 0.4 AST 21 ALT 36 Alkaline Phosphatase 48 Total Protein 6.5 Albumin 3.4 Urine Color Urine Appearance Urine pH Ur Specific [place] Urine Protein Urine Glucose (UA) Urine Ketones Urine Blood Urine Nitrite Urine Bilirubin Urine Urobilinogen Ur Leukocyte Esterase Urine WBC (Auto) Urine RBC (Auto) Urine Casts (Auto) U Pathogenic Cast Auto U Epithel Cells (Auto) U Sm Round Cell (Auto) Urine Crystals (Auto) Urine Bacteria (Auto) RPR Titer Nonreactive 06/24/18 08:19 WBC RBC Hgb Hct MCV MCH MCHC RDW Plt Count MPV Sodium Potassium Chloride Carbon Dioxide Anion Gap BUN Creatinine Est GFR (CKD-EPI)AfAm Est GFR (CKD-EPI)NonAf Random Glucose Calcium Total Bilirubin AST ALT Alkaline Phosphatase Total Protein Albumin Urine Color Yellow Urine Appearance Clear Urine pH 6.5 Ur Specific [place] 1.024 Urine Protein Negative Urine Glucose (UA) Negative Urine Ketones Negative Urine Blood Negative Urine Nitrite Negative Urine Bilirubin Negative Urine Urobilinogen 0.2 Ur Leukocyte Esterase 2+ H Urine WBC (Auto) 6 Urine RBC (Auto) 2 Urine Casts (Auto) 200 U Pathogenic Cast Auto None U Epithel Cells (Auto) 10.3 U Sm Round Cell (Auto) None Urine Crystals (Auto) Few amari ox Urine Bacteria (Auto) 13.7 RPR Titer LABS NOTED. - Treatment Hospital Course: Detox Protocol Followed, Detoxed Safely, Responded well, Discharged Condition Good, Rehab Referral Accepted Patient has Accepted a Rehab Referral to: [facility] ([place], [place]). - Medication Discharge Medications: Ambulatory Orders Bupropion HCl [Wellbutrin Xl -] 300 mg PO DAILY 06/22/18 - Diagnosis (1) Abrasion Status: Acute (2) Dehydration Status: Acute (3) Depression Status: Acute Qualifiers: Depression Type: unspecified Qualified Code(s): F32.9 - Major depressive disorder, single episode, unspecified (4) IVDU (intravenous drug user) Status: Acute (5) Nicotine dependence Status: Acute Qualifiers: Nicotine product type: cigarettes Substance use status: uncomplicated Qualified Code(s): F17.210 - Nicotine dependence, cigarettes, uncomplicated (6) Opioid dependence with withdrawal Status: Acute (7) Weight loss Status: Acute (8) Substance induced mood disorder Status: Acute (9) Depressive disorder Status: Chronic - AMA Did Patient Leave Against Medical Advice: No
== END 2018-06-27 11:40 | disposition other institution (70) | DRG 773 ==
LOC: YASAS 12:13 → Y6N 15:25
PROVIDERS: ADMIT Surgery; ATTEND Surgery
PROC: HZ2ZZZZ Detoxification Services for Substance Abuse Treatment (ICD-10-PCS; principal; 2018-06-22)
DX: F11.23 Opioid dependence with withdrawal (principal); F17.210 Nicotine dependence, cigarettes, uncomplicated; F19.24 Other psychoactive substance dependence with psychoactive substance-induced mood disorder; F32.9 Major depressive disorder, single episode, unspecified; R63.4 Abnormal weight loss; E86.0 Dehydration
CPT/HCPCS: 36415; 80053; 81003; 85027; 86593

== ENCOUNTER 2018-06-27 11:29 | Inpatient (IN) | payer OTHER ==
[2018-06-27] MEDS ORDERED: ACETAMINOPHEN 325 MG TABLET (FP) PO PRN (12:54)
[2018-06-27] MEDS ORDERED: guaiFENesin 200 MG/10 ML 10 ML UNIT-DOSE CUPS PO PRN (12:54)
[2018-06-27] MEDS ORDERED: NICOTINE POLACRILEX 4 MG GUM BUC PRN (12:54)
[2018-06-27] MEDS ORDERED: MAG HYDROX/AL HYDROX/SIMETH 30 ML UNIT-DOSE CUP PO PRN (12:54)
[2018-06-27] MEDS ORDERED: MENTHOL/PHENOL 1 EACH UD MM PRN (12:54)
[2018-06-27] MEDS ORDERED: LOPERAMIDE HCL 2 MG CAPSULE PO PRN (12:54)
[2018-06-27] MEDS ORDERED: MAGNESIUM HYDROX 2400MG/30ML ORAL SUSPENSION 30 ML CUP PO PRN (12:54)
[2018-06-27] MEDS ORDERED: hydrOXYzine PAMOATE 50 MG CAPSULE (FP) PO PRN (12:54)
[2018-06-27] MEDS ORDERED: MAGNESIUM CITRATE 300 ML BOTTLE PO PRN (12:54)
[2018-06-27] MEDS ORDERED: IBUPROFEN 400 MG TABLET (FP) PO PRN (12:54)
[2018-06-27] MEDS ORDERED: P-EPHED 60MG/TRIPROLIDI 2.5MG TABLET PO PRN (12:54)
--- NOTE | 2018-06-27 12:54 | HP ---
DIANA BUITRAGO Rehab Assess/Revision - Admission History Admitted to Rehab from: [address] - Vital signs Vital Signs: Vital Signs Period Temp Pulse Resp BP Sys/Ghotra Pulse Ox Last 24 Hr 97.5 F 96 18 109/59 - Findings Detox History & Physical reviewed: Yes Concur with findings: Yes Inpatient Rehab Admission - Rehab Decision to Admit Inpatient rehab admission?: Yes - Initial Determination Are CD services needed?: Yes Free of communicable disease: Yes Not in need of hospitalization: Yes - Rehab Admission Criteria Previous failed treatment: Yes Poor recovery environment: Yes Comorbidities: Yes Lacks judgement: Yes Patient is meeting Inpatient Rehab admission criteria:: Yes
[2018-06-27] MEDS ORDERED: MELATONIN 5 MG TABLETS PO PRN (22:00)
[2018-06-27] MEDS ORDERED: THIAMINE HCL 100 MG TABLET (FP) PO SCH (22:00)
[2018-06-28 07:01] VITALS: BP 130/59; PULSE 81; TEMP 98.1
[2018-06-28] MEDS ORDERED: PRENATAL VITAMINS W/ FOLIC ACID TABLET (FP) PO SCH (10:00)
[2018-06-28] MEDS ORDERED: NICOTINE 21 MG/24 HOURS TOPICAL PATCH TD SCH (10:00)
--- NOTE | 2018-06-28 23:08 | PN ---
BHS Progress Note Note: NURSE AMELIA CALLED THIS MAINTENANCE TEAM MEMBER TO REPORT THAT PT WANTS TO SIGN OUT. THERE WAS NO PRIOR ENCOUNTER BETWEEN THIS MAINTENANCE TEAM MEMBER AND THE PATIENT DURING THIS ADMISSION. PER NURSE, PT DECLINED TO BE SEEN AND HURRIEDLY EXITED WHILE HE WAS BEING LOOKED FOR TO WAIT TO BE SEEN BY THE PROVIDER. Vital Signs - 24 hr 06/28/18 06/28/18 06/28/18 00:30 03:30 07:00 Temperature 98.1 F Pulse Rate 81 Respiratory 18 18 18 Rate Blood Pressure 130/59 L PLAN:PT SIGNED OUT AMA
== END 2018-06-28 14:10 | disposition left against medical advice (07) | DRG 770 ==
LOC: YASAS 11:29 → Y3W 11:30
PROVIDERS: ADMIT Neuromusculoskeletal Medicine & OMM; ATTEND Neuromusculoskeletal Medicine & OMM
PROC: HZ42ZZZ Group Counseling for Substance Abuse Treatment, Cognitive-Behavioral (ICD-10-PCS; principal; 2018-06-27)
DX: F11.20 Opioid dependence, uncomplicated (principal); F17.210 Nicotine dependence, cigarettes, uncomplicated; F32.9 Major depressive disorder, single episode, unspecified; R63.4 Abnormal weight loss; E86.0 Dehydration

== ENCOUNTER 2018-08-31 10:42 | Inpatient (IN) | payer OTHER ==
[2018-08-31 11:46] VITALS: BMI 22.1
--- NOTE | 2018-08-31 12:47 | HP ---
COWS - Scale Resting Pulse: 1= [place] 81-100 Sweatin= Chills/Flushing Restless Observation: 0= Sits Still Pupil Size: 0= Normal to Room Light Bone or Joint Aches: 2= Severe Diffuse Aches Runny Nose/ Eye Tearin= Runny Nose/Eyes GI Upset > 30mins: 0= None Tremor Observation: 0= None Yawning Observation: 1= 1-2x During Session Anxiety or Irritability: 1=Feels Anxious/Irritable Goose Flesh Skin: 0=Smooth Skin COWS Score: 8 CIWA Score - Admission Criteria OASAS Guidelines: Admission for Medically Managed Detox: Requires at least one of the followin. CIWA greater than 12 2. Seizures within the past 24 hours 3. Delirium tremens within the past 24 hours 4. Hallucinations within the past 24 hours 5. Acute intervention needed for co occurring medical disorder 6. Acute intervention needed for co occurring psychiatric disorder 7. Severe withdrawal that cannot be handled at a lower level of care (continued vomiting, continued diarrhea, abnormal vital signs) requiring intravenous medication and/or fluids 8. Admission ROS [facility] Allergies/Adverse Reactions: Allergies Allergy/AdvReac Type Severity Reaction Status Date / Time No Known Allergies Allergy Verified 08/31/18 11:38 History of Present Illness: pt her requesting edtox from heroin use , reports 1 bundle /day ivdu in right UE , needles from the pharmacy , denie ssharing , + re-using, denies abscess, OD denies , anticipating more severe withdrawal symptoms in the near future , previous detox at this facility June 2018 , left rehab AMA , reports relapse immediately after d/c , denies interim detox . First age of use 25 , prior oxycodone illicit use x 5-6 years while in high school denies other illicits or etoh tobacco : 1 ppd , not interested in smoking cessation pmhx : left ankle frx 1 mo ago playing basketball , casted at Orthopedics clinic in [facility], has f/up in " a few weeks " , using crutches for ambulation NWB LLE . pshx : denies psych : denies , denies SI / HI meds : denies This report was requested by: Teresa Millard | Reference #: [id number] Others' Prescriptions Patient Name: Serge Deluca Date: 1990 Address: [address] [place] [id number] Sex: Male Rx Written Rx Dispensed Drug Quantity Days Supply Prescriber Name 09/05/2017 09/05/2017 suboxone 8 mg-2 mg sl film 35 14 Ida Cavazos DO reports failed Suboxone " I never really stuck with it " Exam Limitations: No Limitations - Ebola screening Have you traveled outside of the country in the last 21 days: No Have you had contact with anyone from an Ebola affected area: No Do you have a fever: No - Review of Systems Constitutional: See HPI EENT: reports: See HPI Respiratory: reports: No Symptoms reported Cardiac: reports: No Symptoms Reported GI: reports: See HPI : reports: No Symptoms Reported Musculoskeletal: reports: See HPI Integumentary: reports: See HPI Neuro: reports: No Symptoms reported Endocrine: reports: No Symptoms Reported Psychiatric: reports: Orientated x3 Patient History - Patient Medical History Hx Anemia: No Hx Asthma: No Hx Chronic Obstructive Pulmonary Disease (COPD): No Hx Cancer: No Hx Cardiac Disorders: No Hx Congestive Heart Failure: No Hx Hypertension: No Hx Hypercholesterolemia: No Hx Pacemaker: No HX Cerebrovascular Accident: No Hx Seizures: No Hx Diabetes: No Hx Gastrointestinal Disorders: No Hx Liver Disease: No Hx Genitourinary Disorders: No Hx Sexually Transmitted Disorders: No Hx Renal Disease (ESRD): No Hx Thyroid Disease: No Hx Human Immunodeficiency Virus (HIV): No (last tested 12/24 negative) Hx Hepatitis C: No Hx Depression: Yes (on Wellbutrin) Hx Suicide Attempt: No Hx Bipolar Disorder: No Hx Schizophrenia: No - Patient Surgical History Past Surgical History: No Hx Neurologic Surgery: No Hx Cataract Extraction: No Hx Cardiac Surgery: No Hx Lung Surgery: No Hx Breast Surgery: No Hx Breast Biopsy: No Hx Abdominal Surgery: No Hx Appendectomy: No Hx Cholecystectomy: No Hx Genitourinary Surgery: No Hx Section: No Hx Orthopedic Surgery: No Anesthesia Reaction: No - PPD History Date: 06/24/18 Results: 0 mm - Smoking Cessation Smoking history: Current every day smoker Have you smoked in the past 12 months: Yes Aproximately how many cigarettes per day: 20 Cigars Per Day: 0 Hx Chewing Tobacco Use: No Initiated information on smoking cessation: No - Substances abused Heroin Substance route: Injection Frequency: Daily Amount used: 1 BUNDLE Age of first use: 25 Date of last use: 08/30/18 Family Disease History - Family Disease History Family Disease History: Diabetes: Father (cabg), Heart Disease: Father Admission Physical Exam BHS - Vital Signs Vital Signs: Vital Signs - 24 hr 08/31/18 11:42 Temperature 98.4 F Pulse Rate 86 Respiratory 16 Rate Blood Pressure 112/67 - Physical General Appearance: Yes: No Apparent Distress HEENTM: Yes: EOMI, Hearing grossly Normal, Normocephalic, Normal Voice Respiratory: Yes: Lungs Clear, Normal Breath Sounds, No Respiratory Distress, No Accessory Muscle Use Neck: Yes: No masses,lesions,Nodules, Trachea in good position Cardiology: Yes: Regular Rhythm, Regular Rate, S1, S2 Abdominal: Yes: Non Tender, Soft Musculoskeletal: Yes: Other (ambulating w/ crutches, NWB LLE , LLE cast to below knee) Extremities: Yes: Other (LLE casted below knee) Neurological: Yes: Fully Oriented, Alert, Motor Strength 5/5 Integumentary: Yes: Warm, Track [place] (r antecubital c/d/ no edema/ erythema) - Diagnostic (1) Opioid dependence with withdrawal Current Visit: Yes Status: Chronic (2) Nicotine dependence Current Visit: Yes Status: Chronic Qualifiers: Nicotine product type: cigarettes Substance use status: uncomplicated Qualified Code(s): F17.210 - Nicotine dependence, cigarettes, uncomplicated Breathalyzer - Breathalyzer Breathalyzer: 0 Urine Drug Screen - Test Device Lot number: [id number] Expiration date: 06/06/19 - Control Is test valid?: Yes - Results Drug screen NEGATIVE: No Urine drug screen results: MOP-Opiates Inpatient Rehab Admission - Rehab Decision to Admit Inpatient rehab admission?: No
[2018-08-31] MEDS ORDERED: IBUPROFEN 400 MG TABLET (FP) PO PRN (12:55)
[2018-08-31] MEDS ORDERED: MAGNESIUM CITRATE 300 ML BOTTLE PO PRN (12:55)
[2018-08-31] MEDS ORDERED: ACETAMINOPHEN 325 MG TABLET (FP) PO PRN ×2 (12:55)
[2018-08-31] MEDS ORDERED: MAG HYDROX/AL HYDROX/SIMETH 30 ML UNIT-DOSE CUP PO PRN (12:55)
[2018-08-31] MEDS ORDERED: BISMUTH SUBSALICYLATE 524 MG/30 ML UD PO PRN (12:55)
[2018-08-31] MEDS ORDERED: NICOTINE POLACRILEX 2 MG GUM BUC PRN (12:55)
[2018-08-31] MEDS ORDERED: MENTHOL/PHENOL 1 EACH UD MM PRN (12:55)
[2018-08-31] MEDS ORDERED: MAGNESIUM HYDROX 2400MG/30ML ORAL SUSPENSION 30 ML CUP PO PRN (12:55)
[2018-08-31] MEDS ORDERED: cloNIDine HCL 0.1 MG TABLET PO PRN (13:32)
[2018-08-31] MEDS ORDERED: METHADONE HCL 10 MG TABLET (FOR DETOX USE ONLY) PO ONE (17:00)
[2018-08-31] MEDS: MELATONIN 5 MG TABLETS PO PRN (22:21)
[2018-08-31] MEDS: hydrOXYzine HCL 25 MG TABLET (FP) PO PRN (22:21)
[2018-08-31] MEDS: THIAMINE HCL 100 MG TABLET (FP) PO SCH (22:21)
[2018-09-01] MEDS ORDERED: METHADONE HCL 10 MG TABLET (FOR DETOX USE ONLY) ONE (08:40)
[2018-09-01] MEDS ORDERED: METHADONE HCL 5 MG TABLET (FOR DETOX USE ONLY) ONE (08:40)
[2018-09-01] MEDS ORDERED: METHADONE (DETOX) 20 MG, METHADONE (DETOX) 5 MG PO ONE (10:00)
[2018-09-01] MEDS: PRENATAL VITAMINS W/ FOLIC ACID TABLET (FP) PO SCH (10:47)
[2018-09-01] MEDS: METHOCARBAMOL 500 MG TABLET PO PRN ×2 (10:48→23:07)
[2018-09-01] MEDS: hydrOXYzine HCL 25 MG TABLET (FP) PO PRN (10:50)
--- NOTE | 2018-09-01 15:42 | PN ---
BHS COWS - Scale Resting Pulse: 0= [place] 80 or Below Sweatin= No chills or Flushing Restless Observation: 0= Sits Still Pupil Size: 0= Normal to Room Light Bone or Joint Aches: 2= Severe Diffuse Aches Runny Nose/ Eye Tearin= None GI Upset > 30mins: 0= None Tremor Observation of Outstretched Hands: 2= Slight Tremor Visible Yawning Observation: 1= 1-2x During Session Anxiety or Irritability: 2=Irritable/Anxious Goose Flesh Skin: 3=Piloerection COWS Score: 10 BHS Progress Note (SOAP) Subjective: Anxious, Body Aches, Restless Legs. Objective: PATIENT A & O X 3. IN NO ACUTE DISTRESS. 09/01/18 15:43 Vital Signs Temperature 97.3 F L 09/01/18 13:23 Pulse Rate 67 09/01/18 13:23 Respiratory Rate 18 09/01/18 13:23 Blood Pressure 113/62 09/01/18 13:23 O2 Sat by Pulse Oximetry (%) DETOX ADMISSION LAB RESULTS PENDING. 09/01/18 15:44 Assessment: 09/01/18 15:44 WITHDRAWAL SYMPTOMS. Plan: CONTINUE DETOX.
[2018-09-01] MEDS: THIAMINE HCL 100 MG TABLET (FP) PO SCH (23:06)
[2018-09-01] MEDS: MELATONIN 5 MG TABLETS PO PRN (23:06)
[2018-09-02] MEDS ORDERED: METHADONE HCL 10 MG TABLET (FOR DETOX USE ONLY) PO ONE (10:00)
[2018-09-02] MEDS: METHOCARBAMOL 500 MG TABLET PO PRN ×2 (10:30→22:42)
[2018-09-02] MEDS: PRENATAL VITAMINS W/ FOLIC ACID TABLET (FP) PO SCH (10:30)
--- NOTE | 2018-09-02 16:09 | PN ---
BHS COWS - Scale Resting Pulse: 0= [place] 80 or Below Sweatin= Chills/Flushing Restless Observation: 0= Sits Still Pupil Size: 1= Pupils >than Normal Bone or Joint Aches: 1= Mild Discomfort Runny Nose/ Eye Tearin= Nasal Congestion GI Upset > 30mins: 1= Stomach Cramp Tremor Observation of Outstretched Hands: 1= Tremor [place], Not Seen Yawning Observation: 2= >3x During Session Anxiety or Irritability: 1=Feels Anxious/Irritable Goose Flesh Skin: 0=Smooth Skin COWS Score: 9 BHS Progress Note (SOAP) Subjective: patient is doing well with methadone detox regimen this 28 years old male admitted on 08/31/18 for opiate withdrawal sx left ankle fx 4 weeks ago treated with full cast ambulate with crutches patient wants to go to [facility] for opiate rehab and follow up with orthopedic two weeks from now had x ray "last week" healing well Objective: 09/02/18 16:08 Vital Signs Temperature 98.2 F 09/02/18 13:36 Pulse Rate 69 09/02/18 13:36 Respiratory Rate 18 09/02/18 13:36 Blood Pressure 115/72 09/02/18 13:36 O2 Sat by Pulse Oximetry (%) 09/02/18 16:09 admission lab ordered for 09/01/18 Assessment: 09/02/18 16:09 opiate withdrawal sx Plan: continue opiate detox
[2018-09-02] MEDS: THIAMINE HCL 100 MG TABLET (FP) PO SCH (22:41)
[2018-09-02] MEDS: MELATONIN 5 MG TABLETS PO PRN (22:41)
[2018-09-02] MEDS: hydrOXYzine HCL 25 MG TABLET (FP) PO PRN (22:42)
[2018-09-03] MEDS ORDERED: METHADONE HCL 5 MG TABLET (FOR DETOX USE ONLY) ONE (09:54)
[2018-09-03] MEDS ORDERED: METHADONE HCL 10 MG TABLET (FOR DETOX USE ONLY) ONE (09:54)
[2018-09-03] MEDS ORDERED: METHADONE (DETOX) 10 MG, METHADONE (DETOX) 5 MG PO ONE (10:00)
[2018-09-03] MEDS: PRENATAL VITAMINS W/ FOLIC ACID TABLET (FP) PO SCH (10:40)
--- NOTE | 2018-09-03 13:44 | PN ---
BHS COWS - Scale Resting Pulse: 0= [place] 80 or Below Sweatin= Chills/Flushing Restless Observation: 0= Sits Still Pupil Size: 1= Pupils >than Normal Bone or Joint Aches: 1= Mild Discomfort Runny Nose/ Eye Tearin= Nasal Congestion GI Upset > 30mins: 1= Stomach Cramp Tremor Observation of Outstretched Hands: 1= Tremor [place], Not Seen Yawning Observation: 0= None Anxiety or Irritability: 1=Feels Anxious/Irritable Goose Flesh Skin: 0=Smooth Skin COWS Score: 7 S Progress Note (SOAP) Subjective: 28 years old male admitted on 08/31/18 for opiate withdrawal sx doing well with methadone detox regimen mild body aches and tremor otherwise feeling ok Objective: 09/03/18 13:43 Vital Signs Temperature 97.5 F L 09/03/18 13:35 Pulse Rate 66 09/03/18 13:35 Respiratory Rate 18 09/03/18 13:35 Blood Pressure 107/63 09/03/18 13:35 O2 Sat by Pulse Oximetry (%) 09/03/18 13:44 lab result see 06/2018 Assessment: 09/03/18 13:45 opiate withdrawal sx Plan: continue opiate detox
[2018-09-03] MEDS: THIAMINE HCL 100 MG TABLET (FP) PO SCH (22:23)
[2018-09-03] MEDS: MELATONIN 5 MG TABLETS PO PRN (22:23)
[2018-09-04] MEDS ORDERED: METHADONE HCL 10 MG TABLET (FOR DETOX USE ONLY) PO ONE (10:00)
[2018-09-04] MEDS: METHOCARBAMOL 500 MG TABLET PO PRN (10:22)
[2018-09-04] MEDS: PRENATAL VITAMINS W/ FOLIC ACID TABLET (FP) PO SCH (10:22)
--- NOTE | 2018-09-04 15:42 | PN ---
BHS COWS - Scale Resting Pulse: 1= [place] 81-100 Sweatin= Chills/Flushing Restless Observation: 0= Sits Still Pupil Size: 0= Normal to Room Light Bone or Joint Aches: 2= Severe Diffuse Aches Runny Nose/ Eye Tearin= None GI Upset > 30mins: 0= None Tremor Observation of Outstretched Hands: 0= None Yawning Observation: 1= 1-2x During Session Anxiety or Irritability: 0= None Goose Flesh Skin: 0=Smooth Skin COWS Score: 5 BHS Progress Note (SOAP) Subjective: Body Aches. Objective: PATIENT A & O X 3. IN NO ACUTE DISTRESS. 09/04/18 15:38 Vital Signs Temperature 97.5 F L 09/04/18 13:12 Pulse Rate 85 09/04/18 13:12 Respiratory Rate 18 09/04/18 13:12 Blood Pressure 108/68 09/04/18 13:12 O2 Sat by Pulse Oximetry (%) ADMISSION LAB RESULTS PENDING. ADMISSION LAB RESULTS FROM ADMISSION ON 2018 NOTED. 09/04/18 15:40 Assessment: 09/04/18 15:41 WITHDRAWAL SYMPTOMS. Plan: CONTINUE DETOX. PATIENT SCHEDULED FOR D/C FROM DETOX UNIT TOMORROW.
[2018-09-04] MEDS: MELATONIN 5 MG TABLETS PO PRN (22:30)
[2018-09-04] MEDS: THIAMINE HCL 100 MG TABLET (FP) PO SCH (22:30)
[2018-09-05] MEDS ORDERED: METHADONE HCL 5 MG TABLET (FOR DETOX USE ONLY) PO ONE (06:00)
[2018-09-05 09:30] VITALS: BP 97/60; PULSE 85; TEMP 98
[2018-09-05] MEDS: PRENATAL VITAMINS W/ FOLIC ACID TABLET (FP) PO SCH (10:32)
--- NOTE | 2018-09-05 15:43 | DS ---
[facility] Detox Discharge Summary Admission Date: 08/31/18 Discharge Date: 09/05/18 - History Present History: Opioid Dependence Additional Comments: 28 years old male admitted on 08/31/18 for acute opiate withdrawal sx management doing well with methadone detox regimen no complication through out the detox stay alert oriented x 3 denies dizziness no shortness of breath aftercare [facility] Pertinent Past History: patient is ambivalent to go to the aftercare facility can not decide which aftercare is best for him discuss medication assisted treatment program - Physical Exam Results Vital Signs: Vital Signs Temperature 98.0 F 09/05/18 09:30 Pulse Rate 85 09/05/18 09:30 Respiratory Rate 18 09/05/18 09:30 Blood Pressure 97/60 09/05/18 09:30 O2 Sat by Pulse Oximetry (%) Pertinent Admission Physical Exam Findings: opiate withdrawal sx Vital Signs Temperature 98.0 F 09/05/18 09:30 Pulse Rate 85 09/05/18 09:30 Respiratory Rate 18 09/05/18 09:30 Blood Pressure 97/60 09/05/18 09:30 O2 Sat by Pulse Oximetry (%) see 06/2018 lab results - Treatment Hospital Course: Detox Protocol Followed, Detoxed Safely, Responded well, Discharged Condition Good, Rehab Referral Accepted Patient has Accepted a Rehab Referral [facility]: [facility] - Medication Discharge Medications: Ambulatory Orders Bupropion HCl [Wellbutrin Xl -] 300 mg PO DAILY 06/22/18 - Diagnosis (1) Opioid dependence with withdrawal Current Visit: Yes Status: Acute (2) Substance induced mood disorder Current Visit: Yes Status: Suspected (3) Weight loss Current Visit: Yes Status: Acute - AMA Did Patient Leave Against Medical Advice: No
== END 2018-09-05 11:17 | disposition home or self-care (01) | DRG 773 ==
LOC: YASAS 10:42 → Y3N 13:39
PROVIDERS: ADMIT Surgery; ATTEND Surgery
PROC: HZ2ZZZZ Detoxification Services for Substance Abuse Treatment (ICD-10-PCS; principal; 2018-08-31)
DX: F11.23 Opioid dependence with withdrawal (principal); F17.210 Nicotine dependence, cigarettes, uncomplicated; F19.24 Other psychoactive substance dependence with psychoactive substance-induced mood disorder; R63.4 Abnormal weight loss

== ENCOUNTER 2018-10-11 14:48 | Inpatient (IN) | payer OTHER ==
[2018-10-11 18:27] VITALS: BMI 23.6
--- NOTE | 2018-10-11 19:59 | HP ---
COWS - Scale Resting Pulse: 1= [place] 81-100 Sweatin= Chills/Flushing Restless Observation: 1= Difficult to Sit Still Pupil Size: 1= Pupils >than Normal Bone or Joint Aches: 2= Severe Diffuse Aches Runny Nose/ Eye Tearin= Runny Nose/Eyes GI Upset > 30mins: 2= Nausea/Diarrhea Tremor Observation: 1= Tremor [place], Not Seen Yawning Observation: 1= 1-2x During Session Anxiety or Irritability: 2=Irritable/Anxious Goose Flesh Skin: 0=Smooth Skin COWS Score: 14 CIWA Score - Admission Criteria [facility]AS[facility] Guidelines: Admission for Medically Managed Detox: Requires at least one of the followin. CIWA greater than 12 2. Seizures within the past 24 hours 3. Delirium tremens within the past 24 hours 4. Hallucinations within the past 24 hours 5. Acute intervention needed for co occurring medical disorder 6. Acute intervention needed for co occurring psychiatric disorder 7. Severe withdrawal that cannot be handled at a lower level of care (continued vomiting, continued diarrhea, abnormal vital signs) requiring intravenous medication and/or fluids 8. Admission ROS [facility] Chief Complaint: opioid withdrawal sx Allergies/Adverse Reactions: Allergies Allergy/AdvReac Type Severity Reaction Status Date / Time No Known Allergies Allergy Verified 10/11/18 18:23 History of Present Illness: Patient is a 28 yo male with hx of opioid intravenous dependence is here seeking inpatient detox d/t withdrawal sx. Denies hx of seizures or overdose. Denies medical hx. Reports hx of depression. Denies SI/HI Exam Limitations: No Limitations - Ebola screening Have you traveled outside of the country in the last 21 days: No (N) Have you had contact with anyone from an Ebola affected area: No Do you have a fever: No - Review of Systems Constitutional: Chills, Loss of Appetite, Weakness, Unintentional Wgt. Loss EENT: reports: Nose Congestion Respiratory: reports: No Symptoms reported Cardiac: reports: No Symptoms Reported GI: reports: Nausea, Poor Appetite, Poor Fluid Intake, Abdominal cramping : reports: No Symptoms Reported Musculoskeletal: reports: Back Pain, Joint Pain Integumentary: reports: No Symptoms Reported Neuro: reports: No Symptoms reported Endocrine: reports: No Symptoms Reported Hematology: reports: No Symptoms Reported Psychiatric: reports: Orientated x3, Anxious Other Systems: Reviewed and Negative Patient History - Patient Medical History Hx Anemia: No Hx Asthma: No Hx Chronic Obstructive Pulmonary Disease (COPD): No Hx Cancer: No Hx Cardiac Disorders: No Hx Congestive Heart Failure: No Hx Hypertension: No Hx Hypercholesterolemia: No Hx Pacemaker: No HX Cerebrovascular Accident: No Hx Seizures: No Hx Diabetes: No Hx Gastrointestinal Disorders: No Hx Liver Disease: No Hx Genitourinary Disorders: No Hx Sexually Transmitted Disorders: No Hx Renal Disease (ESRD): No Hx Thyroid Disease: No Hx Human Immunodeficiency Virus (HIV): No (last tested 12/24 negative) Hx Hepatitis C: No Hx Depression: Yes (on Wellbutrin) Hx Suicide Attempt: No Hx Bipolar Disorder: No Hx Schizophrenia: No - Patient Surgical History Past Surgical History: No Hx Neurologic Surgery: No Hx Cataract Extraction: No Hx Cardiac Surgery: No Hx Lung Surgery: No Hx Breast Surgery: No Hx Breast Biopsy: No Hx Abdominal Surgery: No Hx Appendectomy: No Hx Cholecystectomy: No Hx Genitourinary Surgery: No Hx Section: No Hx Orthopedic Surgery: No Anesthesia Reaction: No - PPD History Previous Implant?: No Documented Results: Negative w/proof Date: 06/24/18 Results: 0 mm PPD to be Administered?: No - Smoking Cessation Smoking history: Current every day smoker Have you smoked in the past 12 months: Yes Aproximately how many cigarettes per day: 20 Cigars Per Day: 0 Hx Chewing Tobacco Use: No Initiated information on smoking cessation: Yes 'Breaking Loose' booklet given: 10/11/18 - Substance & Tx. History Hx Alcohol Use: No Hx Substance Use: Yes Substance Use Type: Opiates Hx Substance Use Treatment: Yes ([facility] detox 08/31/18 -09/05/18) - Substances abused Heroin Substance route: Injection Frequency: Daily Amount used: 1 BUNDLE Age of first use: 25 Date of last use: 10/10/18 Family Disease History - Family Disease History Family Disease History: Diabetes: Father (cabg), Heart Disease: Father Admission Physical Exam BHS - Vital Signs Vital Signs: Vital Signs - 24 hr 10/11/18 18:24 Temperature 98.2 F Pulse Rate 92 H Respiratory 20 Rate Blood Pressure 147/83 - Physical General Appearance: Yes: Disheveled, Thin, Sweating, Anxious HEENTM: Yes: EOMI, Hearing grossly Normal, Normal ENT Inspection, Normocephalic , Normal Voice, QUYEN, Pharynx Normal, Tm's normal, Nasal Congestion Respiratory: Yes: Chest Non-Tender, Lungs Clear, Normal Breath Sounds, No Respiratory Distress, No Accessory Muscle Use Neck: Yes: Within Normal Limits Breast: Yes: Breast Exam Deferred Cardiology: Yes: Regular Rhythm, Regular Rate Abdominal: Yes: Normal Bowel Sounds, Non Tender, Flat, Soft Genitourinary: Yes: Within Normal Limits Back: Yes: Normal Inspection Musculoskeletal: Yes: full range of Motion, Gait Steady, Pelvis Stable Extremities: Yes: Normal Capillary Refill, Normal Inspection, Normal Range of Motion Neurological: Yes: hosted services analyst II-XII NML intact, Fully Oriented, Alert, Motor Strength 5/5, Depressed Affect Integumentary: Yes: Normal Color, Warm, Track [place] (rigth forearm, no cellulitis present) Lymphatic: Yes: Within Normal Limits - Diagnostic (1) Opioid dependence with withdrawal Current Visit: Yes Status: Acute Comment: MAT and harm reduction discussed (2) Weight loss Current Visit: Yes Status: Acute (3) IVDU (intravenous drug user) Current Visit: Yes Status: Chronic (4) Nicotine dependence Current Visit: Yes Status: Chronic Qualifiers: Nicotine product type: cigarettes Substance use status: uncomplicated Qualified Code(s): F17.210 - Nicotine dependence, cigarettes, uncomplicated Cleared for Admission [facility] - Detox or Rehab [facility] Level of Care: Medically Managed Detox Regimen/Protocol: Methadone Breathalyzer - Breathalyzer Breathalyzer: 0 Urine Drug Screen - Test Device Lot number: [id number] Expiration date: 07/06/20 - Control Is test valid?: Yes - Results Drug screen NEGATIVE: No Urine drug screen results: FEN-Fentanyl, MOP-Opiates, OXY-Oxycodone, BZO- Benzodiazepines Inpatient Rehab Admission - Rehab Decision to Admit Inpatient rehab admission?: No
[2018-10-11] MEDS ORDERED: MAG HYDROX/AL HYDROX/SIMETH 30 ML UNIT-DOSE CUP PO PRN (20:00)
[2018-10-11] MEDS ORDERED: NICOTINE POLACRILEX 2 MG GUM BUC PRN (20:00)
[2018-10-11] MEDS ORDERED: ACETAMINOPHEN 325 MG TABLET (FP) PO PRN (20:00)
[2018-10-11] MEDS ORDERED: MENTHOL/PHENOL 1 EACH UD MM PRN (20:00)
[2018-10-11] MEDS ORDERED: IBUPROFEN 400 MG TABLET (FP) PO PRN (20:00)
[2018-10-11] MEDS ORDERED: MAGNESIUM HYDROX 2400MG/30ML ORAL SUSPENSION 30 ML CUP PO PRN (20:00)
[2018-10-11] MEDS ORDERED: P-EPHED 60MG/TRIPROLIDI 2.5MG TABLET PO PRN (20:00)
[2018-10-11] MEDS ORDERED: guaiFENesin 200 MG/10 ML 10 ML UNIT-DOSE CUPS PO PRN (20:00)
[2018-10-11] MEDS ORDERED: LOPERAMIDE HCL 2 MG CAPSULE PO PRN (20:00)
[2018-10-11] MEDS ORDERED: MAGNESIUM CITRATE 300 ML BOTTLE PO PRN (20:00)
[2018-10-11] MEDS ORDERED: cloNIDine HCL 0.1 MG TABLET PO PRN (20:00)
[2018-10-11] MEDS ORDERED: METHADONE HCL 10 MG TABLET (FOR DETOX USE ONLY) PO ONE (20:30)
[2018-10-11] MEDS: THIAMINE HCL 100 MG TABLET (FP) PO SCH (21:35)
[2018-10-11] MEDS: diazePAM 5 MG TABLET PO PRN (21:38)
[2018-10-12] MEDS ORDERED: METHADONE HCL 10 MG TABLET (FOR DETOX USE ONLY) ONE (09:32)
[2018-10-12] MEDS ORDERED: METHADONE HCL 5 MG TABLET (FOR DETOX USE ONLY) ONE (09:33)
--- NOTE | 2018-10-12 09:55 | PN ---
BHS COWS - Scale Resting Pulse: 0= [place] 80 or Below Sweatin= Chills/Flushing Restless Observation: 1= Difficult to Sit Still Pupil Size: 1= Pupils >than Normal Bone or Joint Aches: 2= Severe Diffuse Aches Runny Nose/ Eye Tearin= Runny Nose/Eyes GI Upset > 30mins: 2= Nausea/Diarrhea Tremor Observation of Outstretched Hands: 2= Slight Tremor Visible Yawning Observation: 1= 1-2x During Session Anxiety or Irritability: 2=Irritable/Anxious Goose Flesh Skin: 0=Smooth Skin COWS Score: 14 S Progress Note (SOAP) Subjective: alert,irritable,anxious,interrupted sleep,tremor,painin the body and back Objective: 10/12/18 09:54 Vital Signs Temperature 97.3 F L 10/12/18 09:17 Pulse Rate 80 10/12/18 09:17 Respiratory Rate 18 10/12/18 09:17 Blood Pressure 112/62 10/12/18 09:17 O2 Sat by Pulse Oximetry (%) labs pending Assessment: 10/12/18 09:55 withdrawal symptom Plan: continue detox,methadone regimen
[2018-10-12] MEDS ORDERED: METHADONE (DETOX) 20 MG, METHADONE (DETOX) 5 MG PO ONE (10:00)
[2018-10-12] MEDS: NICOTINE 14 MG/24 HOURS TOPICAL PATCH TD SCH (10:19)
[2018-10-12] MEDS: PRENATAL VITAMINS W/ FOLIC ACID TABLET (FP) PO SCH (10:19)
[2018-10-12] MEDS: THIAMINE HCL 100 MG TABLET (FP) PO SCH (22:38)
[2018-10-12] MEDS: MELATONIN 5 MG TABLETS PO PRN (22:38)
[2018-10-13] MEDS ORDERED: METHADONE HCL 10 MG TABLET (FOR DETOX USE ONLY) PO ONE (10:00)
[2018-10-13] MEDS: NICOTINE 14 MG/24 HOURS TOPICAL PATCH TD SCH (10:41)
[2018-10-13] MEDS: PRENATAL VITAMINS W/ FOLIC ACID TABLET (FP) PO SCH (10:41)
[2018-10-13] MEDS: diazePAM 5 MG TABLET PO PRN (10:43)
--- NOTE | 2018-10-13 10:53 | PN ---
BHS COWS - Scale Resting Pulse: 0= [place] 80 or Below Sweatin= Beads of Sweat on Face Restless Observation: 1= Difficult to Sit Still Pupil Size: 0= Normal to Room Light Bone or Joint Aches: 2= Severe Diffuse Aches Runny Nose/ Eye Tearin= None GI Upset > 30mins: 0= None Tremor Observation of Outstretched Hands: 0= None Yawning Observation: 2= >3x During Session Anxiety or Irritability: 2=Irritable/Anxious Goose Flesh Skin: 0=Smooth Skin COWS Score: 10 S Progress Note (SOAP) Subjective: c/o sweats, muscle aches, and interrupted sleep. Objective: 10/13/18 10:52 Vital Signs 10/13/18 10/13/18 10/13/18 03:30 06:00 09:08 Temperature 97.7 F 97.4 F L Pulse Rate 70 70 Respiratory 18 16 18 Rate Blood Pressure 122/76 128/73 Labs pending Assessment: 10/13/18 10:53 AOX3, in no acute distress. Full ROM, ambulating in the unit. Withdrawal symptoms. Plan: continue detox.
[2018-10-13] MEDS: MELATONIN 5 MG TABLETS PO PRN (22:44)
[2018-10-13] MEDS: THIAMINE HCL 100 MG TABLET (FP) PO SCH (22:44)
[2018-10-14] MEDS ORDERED: METHADONE HCL 5 MG TABLET (FOR DETOX USE ONLY) ONE (09:52)
[2018-10-14] MEDS ORDERED: METHADONE HCL 10 MG TABLET (FOR DETOX USE ONLY) ONE (09:52)
[2018-10-14] MEDS ORDERED: METHADONE (DETOX) 10 MG, METHADONE (DETOX) 5 MG PO ONE (10:00)
[2018-10-14] MEDS: PRENATAL VITAMINS W/ FOLIC ACID TABLET (FP) PO SCH (10:45)
[2018-10-14] MEDS: NICOTINE 14 MG/24 HOURS TOPICAL PATCH TD SCH (10:45)
[2018-10-14] MEDS: diazePAM 5 MG TABLET PO PRN (10:48)
[2018-10-14] MEDS: HYDROCORTISONE 1% TOPICAL CREAM 30 GM TUBE TP SCH ×2 (10:49→22:24)
--- NOTE | 2018-10-14 14:43 | PN ---
[facility] COWS - Scale Resting Pulse: 1= [place] 81-100 Sweatin= Chills/Flushing Restless Observation: 1= Difficult to Sit Still Pupil Size: 0= Normal to Room Light Bone or Joint Aches: 2= Severe Diffuse Aches Runny Nose/ Eye Tearin= None GI Upset > 30mins: 1= Stomach Cramp Tremor Observation of Outstretched Hands: 2= Slight Tremor Visible Yawning Observation: 0= None Anxiety or Irritability: 1=Feels Anxious/Irritable Goose Flesh Skin: 0=Smooth Skin COWS Score: 9 BHS Progress Note (SOAP) Subjective: Sweating, interrupted sleep. Objective: 10/14/18 14:38 Last Vital Signs Temp Pulse Resp BP Pulse Ox 98.2 F 83 18 115/83 10/14/18 13:05 10/14/18 13:05 10/14/18 13:05 10/14/18 13:05 PE: Noted with red macular rash with dryness/flakiness surrounding nasal area Patient stated rash has been there for a while No admission labs available; 06/2018 labs noted Assessment: 10/14/18 14:41 Withdrawal sxs Noted with facial dermatitis Plan: Continue detox Encouraged PO water intake Facial dermatitis: hydrocortisone cream 1% bid
[2018-10-14] MEDS: MELATONIN 5 MG TABLETS PO PRN (22:24)
[2018-10-14] MEDS: THIAMINE HCL 100 MG TABLET (FP) PO SCH (22:24)
--- NOTE | 2018-10-15 09:19 | PN ---
B[facility] COWS - Scale Resting Pulse: 0= [place] 80 or Below Sweatin= No chills or Flushing Restless Observation: 1= Difficult to Sit Still Pupil Size: 0= Normal to Room Light Bone or Joint Aches: 1= Mild Discomfort Runny Nose/ Eye Tearin= None GI Upset > 30mins: 2= Nausea/Diarrhea Tremor Observation of Outstretched Hands: 0= None Yawning Observation: 0= None Anxiety or Irritability: 1=Feels Anxious/Irritable Goose Flesh Skin: 0=Smooth Skin COWS Score: 5 BHS Progress Note (SOAP) Subjective: Patient has some mild withdrawals only. Objective: 10/15/18 09:17 BP: 118/63 P:67 R:17 T:97.5 Assessment: 10/15/18 09:18 1. Opioid Dependence Plan: 1. Continue detox protocol. Patient will be discharged tomorrow.
[2018-10-15] MEDS ORDERED: METHADONE HCL 10 MG TABLET (FOR DETOX USE ONLY) PO ONE (10:00)
[2018-10-15] MEDS: PRENATAL VITAMINS W/ FOLIC ACID TABLET (FP) PO SCH (11:04)
[2018-10-15] MEDS: HYDROCORTISONE 1% TOPICAL CREAM 30 GM TUBE TP SCH ×2 (11:04→22:36)
[2018-10-15] MEDS: NICOTINE 14 MG/24 HOURS TOPICAL PATCH TD SCH (11:04)
[2018-10-15] MEDS: THIAMINE HCL 100 MG TABLET (FP) PO SCH (22:35)
[2018-10-15] MEDS: MELATONIN 5 MG TABLETS PO PRN (22:35)
[2018-10-16] MEDS ORDERED: METHADONE HCL 5 MG TABLET (FOR DETOX USE ONLY) PO ONE (06:00)
[2018-10-16 06:50] VITALS: BP 111/71; PULSE 67; TEMP 97.9
--- NOTE | 2018-10-18 15:20 | DS ---
[facility] Detox Discharge Summary Admission Date: 10/11/18 Discharge Date: 10/16/18 - History Present History: Opioid Dependence Additional Comments: follow up with after care program as arrangement Pertinent Past History: nicotine dependence - Physical Exam Results Vital Signs: Vital Signs Temperature 97.9 F 10/16/18 06:15 Pulse Rate 67 10/16/18 06:15 Respiratory Rate 16 10/16/18 06:15 Blood Pressure 111/71 10/16/18 06:15 O2 Sat by Pulse Oximetry (%) Pertinent Admission Physical Exam Findings: withdrawal signs and symptoms Vital Signs Temperature 97.9 F 10/16/18 06:15 Pulse Rate 67 10/16/18 06:15 Respiratory Rate 16 10/16/18 06:15 Blood Pressure 111/71 10/16/18 06:15 O2 Sat by Pulse Oximetry (%) - Treatment Hospital Course: Detox Protocol Followed, Detoxed Safely, Responded well, Discharged Condition Good Patient has Accepted a Rehab Referral to: declined - Medication Discharge Medications: Ambulatory Orders NK [No Known Home Medication] 10/11/18 - Diagnosis (1) Opioid dependence with withdrawal Status: Acute (2) IVDU (intravenous drug user) Status: Chronic (3) Nicotine dependence Status: Chronic Qualifiers: Nicotine product type: cigarettes Substance use status: uncomplicated Qualified Code(s): F17.210 - Nicotine dependence, cigarettes, uncomplicated - AMA Did Patient Leave Against Medical Advice: No
== END 2018-10-16 06:26 | disposition home or self-care (01) | DRG 773 ==
LOC: YASAS 14:48 → Y6N 20:21
PROVIDERS: ADMIT Surgery; ATTEND Surgery
PROC: HZ2ZZZZ Detoxification Services for Substance Abuse Treatment (ICD-10-PCS; principal; 2018-10-11)
DX: F11.23 Opioid dependence with withdrawal (principal); F17.210 Nicotine dependence, cigarettes, uncomplicated; F32.9 Major depressive disorder, single episode, unspecified; L30.9 Dermatitis, unspecified; R63.4 Abnormal weight loss; Z68.23 Body mass index [BMI] 23.0-23.9, adult